=== PATIENT | male | born 1965 | race Caucasian/White ===

== ENCOUNTER 2017-04-06 13:17 | Emergency (ER) | payer SELFPAY ==
--- NOTE | 2017-04-11 08:46 | ER ---
ADMIT: 04/06/2017 RM/LOC: ER [facility] MR#: [id number] [address] [id number] COREEN FLYNNSHUA MORTEZA GILLIAM [address] [place] [address] Emergency Room Report SEX: M AGE: 52 : 1965 DATE: 04/06/2017 SUBJECTIVE: A 52-year-old gentleman[place] he developed flank pain and hematuria. See T sheet for history and physical. The CT renal run of the abdomen is negative for stones. No abscess were noted. The patient is diagnosed with urinary tract infection. He had 14 wbc's, 38 rbc's, many bacteria, nitrite positive, and 3+ leukocyte esterase. Given a prescription for ciprofloxacin and Ultram. DIAGNOSIS: Urinary tract infection. Instructed follow up with his primary doctor in 2 to 3 days. Fady Scruggs MD/ luis enrique JOB #: [id number] CC: Matthieu Robles MD, Attending Physician UNKNOWN, Family Physician
== END 2017-04-06 14:55 | disposition home or self-care (01) ==
LOC: ER 13:17
DX: N39.0 Urinary tract infection, site not specified (principal); Z90.49 Acquired absence of other specified parts of digestive tract; Z88.0 Allergy status to penicillin; Z88.6 Allergy status to analgesic agent; Z79.899 Other long term (current) drug therapy